=== PATIENT | male | born 1945 | race Caucasian/White ===

== ENCOUNTER 2016-07-12 17:02 | Emergency (ER) | payer OTHER ==
[2016-07-12 17:09] VITALS: BP 131/83; PULSE 67; RESP 20; TEMP 97.2; O2SAT 93
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
== END 2016-07-12 18:27 | disposition home or self-care (01) ==
DX: S70.12XA Contusion of left thigh, initial encounter (principal); V19.40XA Pedal cycle driver injured in collision with unspecified motor vehicles in traffic accident, initial encounter; Y92.410 Unspecified street and highway as the place of occurrence of the external cause; Y99.8 Other external cause status; Y93.89 Activity, other specified
CPT/HCPCS: L1830